=== PATIENT | male | born 1940 | race Caucasian/White ===

== ENCOUNTER 2021-03-31 10:20 | Inpatient (IN) | payer OTHER ==
[~2021-03-31] VITALS: Ht 188 cm; Wt 71.2 kg
--- NOTE | ~2021-03-31 | H ---
[facility] [place] [address] HISTORY AND PHYSICAL Name: JANETTE HOWARD Room #: 360-P [facility] M.R.#: [id number] Admission: 03/31/21 Attend Phys: Irving Wells MD, FAAF Discharge: Date of : 40 Report #: [id number] THIS REPORT FOR: cc: Irving Wells MD FAAFP FACEP Irving Wells MD FAAFP FACEP Irving Wells MD FAAFP FACEP ~ cc: Janette Nobles MD DATE OF SERVICE: 03/31/2021 CHIEF COMPLAINT: Debility with URI; COVID positive viral infection. HISTORY OF PRESENT ILLNESS: The patient is an 81-year-old white male patient of mine for many years, who has felt ill with upper respiratory symptoms, congestion and cough over the last several days. He was started on a Z-GREG and a Medrol Dosepak by telephone order the day prior to this admission and had no improvement in his symptoms. He developed some mental slowing and more dramatic generalized weakness, difficulty walking on the day of admission, was evaluated in the Emergency Department at [facility] and found to be COVID-19 positive. He also was hypoxic and required supplemental oxygen and he was admitted to the hospital. PAST MEDICAL HISTORY: Venous insufficiency, painful peripheral neuropathy, right inguinal hernia, and glaucoma, diagnosed in 10/2011. MEDICATIONS: Vitamins, minerals, latanoprost eye drops. ALLERGIES: No known drug allergies. 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 Lives at home with his . Nonsmoker. Amrita curran. FAMILY HISTORY: Positive for varicose veins. A sister who has from heart disease, also had rheumatoid arthritis and hyperlipidemia, syndrome. REVIEW OF SYSTEMS: GENERAL: He has had fever, chills, malaise. No vomiting or diarrhea. EYES: No visual changes. ENT: No problems with hearing, swallow, taste or smell. CARDIOVASCULAR: No chest pain or palpitations. RESPIRATORY: He has had nonproductive cough and upper respiratory congestion in both head and chest. GASTROINTESTINAL: No abdominal pain. GENITOURINARY: No problems urinating. MUSCULOSKELETAL: He does have some arthritic changes now and has myalgias with his current viral infection. [facility] [address] [place] [address] HISTORY AND PHYSICAL Name: JANETTE HOWARD Room #: 360-P [facility].#: [id number] Admission: 03/31/21 Attend Phys: Irving Wells MD, FAAF Discharge: Date of : 40 Report #: [id number] NEUROLOGIC: No paresis, paralysis, paresthesias. PSYCHIATRIC: Some mental slowing and episodic confusion, mainly today. DERMATOLOGIC: No disturbing lesions or rash. He does have some chronic venous stasis changes that have improved from his procedures through the years. Remainder of systems review is negative. OBJECTIVE: VITAL SIGNS: Temperature is 37.3, pulse 94, respirations 24, blood pressure 108/69, pulse ox 94% on room air. GENERAL: He appears somnolent, but otherwise in no acute distress. He speaks short sentences. HEENT: Pupils equal, round, reactive to light and accommodation. Extraocular muscles intact. LUNGS: Coarse breath sounds bilaterally with coarse cough. CARDIAC: S1, S2 normal heart sounds. ABDOMEN: Soft, nontender. EXTREMITIES: Nonedematous. NEUROLOGIC: Answers questions appropriately. No neurologic deficits. EKG: Sinus rhythm, rate 77, no ischemia or ectopy. LABORATORY DATA: COVID-19 swab was positive. C-reactive protein 36.8. BNP 272. Procalcitonin 0.05. White count was 4.8, hemoglobin 16.9, hematocrit 50.4, mean corpuscular volume 91.3, platelets 115,000. Differential white count 67.7% segmented neutrophils, 17.8% lymphocytes, 14.2% monocytes. Chemistry: Sodium 134, potassium 3.5, chloride 97, CO2 of 28, anion gap 9, BUN 24, creatinine 1.3, estimated glomerular filtration rate 53. Glucose 152, calcium 8.6, total bilirubin 0.9, AST 40, ALT 26, alkaline phosphatase 58. Troponin less than 0.06. Total protein 7.7, albumin 3.4. Chest x-ray done from the Emergency Department, no acute cardiopulmonary findings. While in the hospital Emergency Department, his respiratory rate vadim to the 30s. As he was somnolent, oxygen saturation dropped to 90. He was placed on 1 liter nasal cannula and kept his oxygen saturation in the 90s. ASSESSMENT: COVID-19 viral syndrome, hypoxia, generalized debility, mental status changes, thrombocytopenia, was admitted to the hospital to COVID floor for supplemental oxygen. We will proceed with COVID pharmacological protocol and anticoagulation therapy. By: 1103 1207 Irving Wells MD, FAAFP, FACEP /nt
[2021-03-31 10:50] VITALS: BP 108/69
[2021-03-31 11:06] LABS: ABSOLUTE NEUTROPHILS 3.2 thou/uL (1.4-8.2); BASOPHILS 0.3 % (0.0-2.0); HEMATOCRIT 50.4 % (42.0-52.0); HEMOGLOBIN 16.9 gm/dL (14.0-18.0); LYMPHOCYTES 17.8 % (24.0-44.0); MCH 30.6 pg (26.0-34.0); MCHC 33.5 g/dL (28.0-37.0); MCV 91.3 fL (80.0-100.0); MONOCYTES 14.2 % (1.0-8.0); PLATELET COUNT 115 thou/uL (150-400); POLYS 67.7 % (36.0-66.0); RBC 5.52 mil/uL (4.50-6.00); WBC 4.8 thou/uL (4.0-11.0)
[2021-03-31 11:13] LABS: ANION GAP 9 mmol/L (7-16); BUN 24 mg/dL (7-18); CALCIUM 8.6 mg/dL (8.5-10.1); CHLORIDE 97 mmol/L (98-107); CO2 28 mmol/L (21-32); CREATININE 1.3 mg/dL (0.7-1.3); GLUCOSE 152 mg/dL (74-106); POTASSIUM 3.5 mmol/L (3.5-5.1); SODIUM 134 mmol/L (136-145)
[2021-03-31 11:23] LABS: ALBUMIN 3.4 g/dL (3.4-5.0); SGOT 40 U/L (15-37); SGPT 26 U/L (16-63); TOTAL BILIRUBIN 0.9 mg/dL (0.2-1.0); TOTAL PROTEIN 7.7 g/dL (6.4-8.2); TROPONIN-I <0.06 ng/mL (<0.06)
--- NOTE | 2021-03-31 12:47 | EKG ---
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1940 Requested By: Luis Freeman Order Number: [id number] MD: Dioni Ruiz Measurements Intervals [place] Rate: 77 P: 64 MT: 153 QRS: -83 QRSD: 108 T: 58 QT: 384 QTc: 435 Interpretive Statements Sinus rhythm Probable left atrial enlargement LAD, consider left anterior fascicular block Left ventricular hypertrophy Baseline wander in lead(s) V1,V2,V3 No previous ECG available for comparison Electronically Signed On 03-31-2021 12:47:25 CDT by Dioni Ruiz [email or web address] <ELECTRONICALLY SIGNED> By: Dioni Ruiz MD, [facility] 03/31/21 1247 1108 1108 Dioni Ruiz MD, FAC /EPI
[2021-03-31 15:40] VITALS: BP 146/64
[2021-03-31 15:43] VITALS: BP 141/51
[2021-03-31 16:23] VITALS: BP 133/81
--- NOTE | 2021-03-31 17:11 | NUR ---
81 year old male presenting to the ED with complaints of weakness that has been progressively worsening over the past 3 days. The pt notes he is unable to walk as of ED presentation because of generalized weakness. Upon arrival in the ED it was seen that the pt needed assistance from family to exit the car and ambulate into the department. Pt is positive for COVID-19. Pt reports he did not receive a COVID-19 vaccination. The patient has been admitted for hypoxia and Covid pneumonia. Pt's PCP is Dr. Irving Wells and is seen as alert and oriented. Patient also lives at home with his spouse Olga and can be reached at [phone]. CM will follow for discharge needs upon medical evaluation and plan of care has been established.
[2021-03-31 20:16] VITALS: BP 133/65
--- NOTE | 2021-04-01 01:04 | NUR ---
PT TAKEN TO CT TONIGHT PER [facility] ORDERS.
[2021-04-01 02:43] LABS: ABSOLUTE NEUTROPHILS 6.1 thou/uL (1.4-8.2); BASOPHILS 0.2 % (0.0-2.0); HEMOGLOBIN 15.9 gm/dL (14.0-18.0); LYMPHOCYTES 12.1 % (24.0-44.0); MCH 30.8 pg (26.0-34.0); MCHC 34.5 g/dL (28.0-37.0); MCV 89.4 fL (80.0-100.0); MONOCYTES 10.3 % (1.0-8.0); PLATELET COUNT 82 thou/uL (150-400); POLYS 77.4 % (36.0-66.0); RBC 5.14 mil/uL (4.50-6.00); RDW 13.5 % (10.5-14.5); WBC 7.9 thou/uL (4.0-11.0)
[2021-04-01 02:58] LABS: INR 1.11
[2021-04-01 03:22] LABS: CALCIUM 7.6 mg/dL (8.5-10.1); CREATININE 1.2 mg/dL (0.7-1.3); MAGNESIUM 1.8 mg/dL (1.8-2.4); POTASSIUM 3.3 mmol/L (3.5-5.1)
[2021-04-01 04:45] VITALS: BP 130/62
--- NOTE | 2021-04-01 06:09 | NUR ---
CONTINIUES ON 4 LITERS OVER NIGHT. HE HAS BEEN DROWSY TONIGHT, BUT AWAKENS EASILY. CONTINUES ON IV FLUIDS. RESTING QUIETLY. TURNS SLEF SIDE TO SIDE.
[2021-04-01 07:23] VITALS: BP 126/88
[2021-04-01 14:34] LABS: CALCIUM 7.7 mg/dL (8.5-10.1); CREATININE 1.1 mg/dL (0.7-1.3); POTASSIUM 3.7 mmol/L (3.5-5.1)
[2021-04-01 14:39] LABS: ALBUMIN 2.6 g/dL (3.4-5.0); DIRECT BILIRUBIN 0.2 mg/dL (<0.1-0.2); PHOSPHORUS 2.6 mg/dL (2.5-4.9); TOTAL BILIRUBIN 0.9 mg/dL (0.2-1.0); TOTAL PROTEIN 6.5 g/dL (6.4-8.2)
[2021-04-01 15:32] VITALS: BP 112/74
--- NOTE | 2021-04-01 15:47 | NUR ---
INITIAL ASSESSMENT: LEONARDO reviewed chart and spoke with nursing and attending physician. Pt was admitted from home due to hypoxia. Pt placed in Enhanced Isolation due to COVID. Pt has not been vaccinated. Pt has been febrile and is on 4L of O2. Pt is on IV steroids and Remdesivir. LEONARDO placed call to pt's room. No answer. No listed contact info for pt's family. Per chart, pt is alert/orientated. Pt lives at home with his . Prior to admission, pt was independent with ADLs. No use of DME. PT/OT consulted. LEONARDO is following to assist as needed with discharge planning.
[2021-04-01 20:20] VITALS: BP 103/60
--- NOTE | 2021-04-01 23:12 | NUR ---
CONTINUES ON O2, 4 LITERS. HE IS KEENLY ALERT TONIGHT. SITTING UP EATING A BANANA. DENIES PAIN. NO SPUTUM TO COUGH UP, UNABLE TO COLLECT THE SPUTUM CULTURE
[2021-04-02 05:23] VITALS: BP 103/60
[2021-04-02 07:40] VITALS: BP 112/62
[2021-04-02 12:20] LABS: HEMATOCRIT 40.3 % (42.0-52.0); MCH 30.4 pg (26.0-34.0); MCV 89.6 fL (80.0-100.0); RBC 4.5 mil/uL (4.50-6.00); RDW 14.1 % (10.5-14.5); WBC 9.5 thou/uL (4.0-11.0)
[2021-04-02 12:25] LABS: HEMOGLOBIN 13.7 gm/dL (14.0-18.0)
[2021-04-02 12:38] LABS: CALCIUM 7.5 mg/dL (8.5-10.1); POTASSIUM 3.6 mmol/L (3.5-5.1)
[2021-04-02 12:43] LABS: ALBUMIN 2.3 g/dL (3.4-5.0); DIRECT BILIRUBIN 0.2 mg/dL (<0.1-0.2); PHOSPHORUS 1.5 mg/dL (2.6-4.7); TOTAL BILIRUBIN 0.5 mg/dL (0.2-1.0); TOTAL PROTEIN 5.1 g/dL (6.4-8.2)
[2021-04-02 15:42] VITALS: BP 104/50
--- NOTE | 2021-04-02 16:18 | NUR ---
SW reviewed chart and spoke with nursing. Pt remains in Enhanced Isolation due to COVID. Pt is afebrile and on 3L of O2. Pt is on IV steroids and Remdesivir. SW placed call to pt's room. No answer. Plan is for pt to discharge home when medically stable. LEONARDO is following to assist as needed with discharge planning.
[2021-04-02 19:07] LABS: HIV ANTIBODY Non Reactive (Non Reactive)
--- NOTE | 2021-04-02 19:49 | NUR ---
ASSUMED PATIENT CARE AT 0700. A/O X4. TOLERATED ON 3L/NC. UP WITH ASSISTED. VSS, SLOWLY TOWARDS POC GOALS.
[2021-04-02 20:45] VITALS: BP 119/70
[2021-04-03 02:39] LABS: HEMATOCRIT 39.9 % (42.0-52.0); HEMOGLOBIN 13.7 gm/dL (14.0-18.0); MCH 30.5 pg (26.0-34.0); MCHC 34.2 g/dL (28.0-37.0); MCV 89.1 fL (80.0-100.0); RBC 4.48 mil/uL (4.50-6.00); RDW 13.9 % (10.5-14.5); WBC 8.9 thou/uL (4.0-11.0)
[2021-04-03 02:46] LABS: CALCIUM 7.3 mg/dL (8.5-10.1); CREATININE 0.9 mg/dL (0.7-1.3)
[2021-04-03 04:12] VITALS: BP 123/66
--- NOTE | 2021-04-03 07:49 | NUR ---
PT IS A/OX4. PT HAS WEAKNESS ASSOCIATED FROM COVID. OVERNIGHT PT HR VERY JESUS MANUEL. LOWEST POINT WAS 39 BPM AND HOVERS IN THE 40'S. FOLLOWING POC WITH IVF GTT. ISOLATION AND FALL PRECAUTIONS IN PLACE.
[2021-04-03 08:22] VITALS: BP 101/57
[2021-04-03 14:35] LABS: ALBUMIN 2.2 g/dL (3.4-5.0); DIRECT BILIRUBIN 0.1 mg/dL (<0.1-0.2); TOTAL BILIRUBIN 0.5 mg/dL (0.2-1.0); TOTAL PROTEIN 5.1 g/dL (6.4-8.2)
--- NOTE | 2021-04-03 15:03 | NUR ---
LEONARDO reviewed chart and spoke with nursing. Pt remains in Enhanced Isolation due to COVID. Pt is afebrile and on 2L of O2. Pt is on IV steroids and Remdesivir. LEONARDO placed call to pt's room multiple times today. No answer. Pt may need a rest/exercise oximetry study prior to discharge to determine home O2 needs if not able to be weaned off O2. Plan is for pt to discharge home when medically stable. LEONARDO is following to assist as needed with discharge planning.
[2021-04-03 16:39] VITALS: BP 127/69
[2021-04-03 20:30] VITALS: BP 129/63
[2021-04-04 05:20] VITALS: BP 117/60
[2021-04-04 07:47] VITALS: BP 127/68
[2021-04-04 11:40] LABS: ABSOLUTE NEUTROPHILS 4.9 thou/uL (1.4-8.2); BASOPHILS 0.1 % (0.0-2.0); HEMATOCRIT 44.5 % (42.0-52.0); LYMPHOCYTES 6.5 % (24.0-44.0); MCH 30.3 pg (26.0-34.0); MCHC 33.7 g/dL (28.0-37.0); MCV 89.8 fL (80.0-100.0); MONOCYTES 5.8 % (1.0-8.0); POLYS 87.6 % (36.0-66.0); RBC 4.95 mil/uL (4.50-6.00); RDW 13.5 % (10.5-14.5); WBC 5.6 thou/uL (4.0-11.0)
[2021-04-04 12:04] LABS: ALBUMIN 2.2 g/dL (3.4-5.0); CALCIUM 7.5 mg/dL (8.5-10.1); CREATININE 0.8 mg/dL (0.7-1.3); DIRECT BILIRUBIN 0.2 mg/dL (<0.1-0.2); POTASSIUM 3.6 mmol/L (3.5-5.1); TOTAL BILIRUBIN 0.5 mg/dL (0.2-1.0); TOTAL PROTEIN 5.5 g/dL (6.4-8.2)
[2021-04-04 13:54] LABS: PLATELET COUNT 117 thou/uL (150-400)
[2021-04-04 13:56] LABS: LARGE PLATELETS FEW
[2021-04-04 15:29] VITALS: BP 138/70
[2021-04-04 19:28] VITALS: BP 148/63
[2021-04-05 05:42] VITALS: BP 139/71
[2021-04-05 06:14] LABS: HEMATOCRIT 40.9 % (42.0-52.0); HEMOGLOBIN 14.2 gm/dL (14.0-18.0); MCH 30.9 pg (26.0-34.0); MCHC 34.7 g/dL (28.0-37.0); MCV 89.2 fL (80.0-100.0); PLATELET COUNT 125 thou/uL (150-400); RBC 4.59 mil/uL (4.50-6.00); RDW 13.7 % (10.5-14.5); WBC 5.9 thou/uL (4.0-11.0)
--- NOTE | 2021-04-05 06:17 | NUR ---
PT WAS IN GOOD SPIRITS AFTER VISITING WITH HIS . VSS AND PT HAS NO COMPLAINTS. UP WITH SBA AND WALKER. FOLLOW POC WITH IVF AND COVID POC. PT HEART RATES VERY JESUS MANUEL, WITH LOWEST AT 37 BPM. HR RANGE BETWEEN 37-54 BPM. CALL LIGHT WITHIN REACH.
[2021-04-05 06:56] LABS: CALCIUM 7.3 mg/dL (8.5-10.1); CREATININE 0.7 mg/dL (0.7-1.3); POTASSIUM 3.8 mmol/L (3.5-5.1)
[2021-04-05 08:20] VITALS: BP 134/91
[2021-04-05 11:19] LABS: ABSOLUTE NEUTROPHILS 4.5 thou/uL (1.4-8.2)
[2021-04-05 11:20] LABS: ANISOCYTOSIS SLIGHT
[2021-04-05 15:31] VITALS: BP 143/62
[2021-04-05 20:00] VITALS: BP 146/64
[2021-04-06 04:47] VITALS: BP 108/45
--- NOTE | 2021-04-06 06:40 | NUR ---
Pt. slept well during the night. Periods of being forgetful but easily redirected. Cont. on enhanced precaution , afebrile. Tolerating room air well. Voiding per urinal. Progressing towards discharge goals.
[2021-04-06 07:33] VITALS: BP 137/74
[2021-04-06 08:07] LABS: T-SPOT.TB Negative
--- NOTE | 2021-04-06 09:06 | NUR ---
Assess due to length of stay. Admit with covid+ status. Advanced age 81. BMI is 20. Unknown wt hx. Loss appetite, attempts to eat 25-50% intake. Does have record of supplement consumption but noted not routine order-will order bid ensure enlive. Low nutrition risk at this time.
--- NOTE | 2021-04-06 14:59 | NUR ---
SW reviewed chart and spoke with nursing. Pt remains in Enhanced Isolation due to COVID. Pt is afebrile and not requiring O2. Pt has completed course of Remdesivir. LEONARDO placed call to pt's room. No answer. LEONARDO spoke with pt's son, Axel, via phone. Introduced role of SW. Pt is normally alert/orientated x 4. Pt and spouse live at home and have been independent with ADLs. No use of DME. No hx of HH services or post-acute placement. Pt's PCP is Dr. Theron Wells. Pt's son is agreeable with HH referral if recommended at time of discharge, and if pt is agreeable. Pt's children will be taking turns staying with pt and when they are discharged. LEONARDO is following to assist as needed with discharge planning.
[2021-04-06 15:14] VITALS: BP 130/71
[2021-04-06 19:43] VITALS: BP 137/73
[2021-04-07 03:20] VITALS: BP 132/66
--- NOTE | 2021-04-07 05:07 | NUR ---
Slept fair during the night. Denies being short of breath and tolerating room air well.Cont. on enhanced precaution,afebrile. Voiding per urinal. pt. hoping to go home today. Progressing towards discharge goals.
[2021-04-07 07:40] VITALS: BP 129/79
--- NOTE | 2021-04-07 14:40 | NUR ---
SW reviewed chart and spoke with nursing. Pt remains in Enhanced Isolation due to COVID. Pt is afebrile and not requiring O2. SW placed call to pt's room to discuss discharge. No answer. SW contacted attending physician to discuss discharge timefram. Awaiting response at this time. Plan is for pt to discharge home when medically stable. LEONARDO is following to assist as needed with discharge planning.
[2021-04-07 15:53] VITALS: BP 115/61
--- NOTE | 2021-04-07 17:59 | NUR ---
PT CONTINUES TO REFUSE HOSPITAL FOOD. IS OUT OF HOME SUPPLEMENT, INFORMED PT SON. PT APPEARS TO BE MORE DEPRESSED WITH BEING IN THE HOSPITAL. STATES HE DESIRES TO GO HOME. NO BM RECORDED SINCE 04/01/21. PT UNABLE TO REMEMBER LAST BM.
[2021-04-07 20:21] VITALS: BP 112/69
[2021-04-08 04:09] VITALS: BP 124/56
--- NOTE | 2021-04-08 05:04 | NUR ---
resting quietly tonight. denies pain. cooperative and friendly. awaiting discharge this am
[2021-04-08 07:41] VITALS: BP 136/67
[2021-04-08 12:53] VITALS: BP 136/67
[2021-04-08 12:54] VITALS: BP 136/67
[2021-04-08] MEDS ORDERED: ZINC SULFATE50 MG PO (12:55)
[2021-04-08] MEDS ORDERED: DEXAMETHASONE 44 M1 PO (12:56)
[2021-04-08 13:04] VITALS: BP 136/67
--- NOTE | 2021-04-08 13:13 | NUR ---
DISCHARGE NOTE: LEONARDO reviewed chart and spoke with nursing and attending physician. Pt remains in Enhanced Isolation due to COVID. Pt is medically stable for discharge home today. LEONARDO placed call to pt's room. No answer. LEONARDO spoke with pt's (currently inpt) to discuss discharge plan. Introduced role of SW. Pt's is agreeable with HH for both herself and pt. HH providers discussed. No preference voiced. LEONARDO confirmed pt's home address and phone number. Pt states that their dtr is currently in town from [place] and will be staying until Tuesday. Their son from [place] will be arriving in town on Tuesday and staying for a week. Pt's dtr will provide transportation home this afternoon. LEONARDO faxed HH referral and discharge ppwk to [facility]. Notified [facility] liaison. Confirmed info was recieved. Start of care planned for Tuesday, 04/11. Contact info for [facility] placed in pt's discharge summary. Nursing updated. No additional SW needs identified at this time, but is available to assist should needs arise.
== END 2021-04-08 13:59 | disposition home health service (06) | DRG 177 ==
LOC: ER 10:20 → EROBS 13:28 → 3W 13:28
PROVIDERS: Internal Medicine; Nurse Practitioner; Specialist; Student in an Organized Health Care Education/Training Program; ADMIT Family Medicine; ATTEND Family Medicine
PROC: XW033E5 Introduction of Remdesivir Anti-infective into Peripheral Vein, Percutaneous Approach, New Technology Group 5 (ICD-10-PCS; principal; 2021-03-31)
DX: U07.1 COVID-19 (principal); J12.82 Pneumonia due to coronavirus disease 2019; E87.1 Hypo-osmolality and hyponatremia; G93.40 Encephalopathy, unspecified; E44.0 Moderate protein-calorie malnutrition; R09.02 Hypoxemia; G62.9 Polyneuropathy, unspecified; R53.81 Other malaise; D69.6 Thrombocytopenia, unspecified; Z68.20 Body mass index [BMI] 20.0-20.9, adult; Z82.49 Family history of ischemic heart disease and other diseases of the circulatory system; Z82.61 Family history of arthritis; Z79.899 Other long term (current) drug therapy
CPT/HCPCS: 10080